=== PATIENT | male | born 1945 | race Caucasian/White ===

== ENCOUNTER → 2018-08-15 | Outpatient (REF) | payer MEDICARE ==
[~2018-08-15] MED LIST: ALPRAZOLAM0.25 M1 PO; AMOXICILLIN500 MG PO; ARTHRITIS PAIN650 MG PO; ASPIRIN 8181 MG PO; CLARITHROMYC500 MG PO; LEVETIRACETAM500 M1 PO; LOSARTAN POT50 MG PO; MAXZIDE-2537.5 MG/TA PO; MELATONIN5 MG PO; METOPROL TAR25 M1 PO; MULTIVITAMIN PO; OMEPRAZOLE20 M1 PO; OSTEO BI-FLE PO; SIMVASTATIN40 MG PO; TRAZODONE HCL50 MG PO
== END | disposition home or self-care (01) ==
LOC: ULTRASND 07:20
PROVIDERS: ATTEND Nurse Practitioner Family
DX: Z13.6 Encounter for screening for cardiovascular disorders (principal); Z87.891 Personal history of nicotine dependence
CPT/HCPCS: 76706

== ENCOUNTER 2018-10-16 05:47 | Day surgery (SDC) | payer MEDICARE ==
[~2018-10-16] VITALS: Ht 185.4 cm; Wt 98.4 kg
[~2018-10-16 05:47] MED LIST changes: +FUROSEMIDE20 MG PO; +LOSARTAN POT25 MG PO; +MELOXICAM15 MG PO; +METFORMIN500 M2 PO; +TRAZODONE100 MG PO
[2018-10-16 07:36] VITALS: BP 127/67
== END 2018-10-16 07:48 | disposition home or self-care (01) ==
LOC: ENDO 05:47
PROVIDERS: ATTEND Surgery
PROC: 0DJD8ZZ Inspection of Lower Intestinal Tract, Via Natural or Artificial Opening Endoscopic (ICD-10-PCS; principal; 2018-10-16)
DX: Z12.11 Encounter for screening for malignant neoplasm of colon (principal); K57.30 Diverticulosis of large intestine without perforation or abscess without bleeding; K64.4 Residual hemorrhoidal skin tags; K64.8 Other hemorrhoids; Z90.49 Acquired absence of other specified parts of digestive tract

== ENCOUNTER 2022-07-06 16:40 | Observation (INO) | payer MEDICARE ==
[2022-07-06] VITALS (50 sets, daily range): BP systolic 36–137; BP diastolic 18–98
[~2022-07-06] VITALS: Ht 185.4 cm; Wt 107.1 kg
[~2022-07-06 16:40] MED LIST changes: +CYMBALTA60 MG PO; -METOPROL TAR25 M1 PO; +MONTELUKAST SOD10 MG PO; +TOPROL XL25 M1 PO; +XARELTO STARTER1 TAB PO
--- NOTE | 2022-07-06 16:50 | NUR ---
PT TO ROOM VIA WC
[2022-07-06 17:08] LABS: HEMATOCRIT 42.3 % (39.0-50.0); IMMATURE GRANULOCYTES 0.4 % (0.0-5.0); MEAN CELL VOLUME 96.4 fL CALC (80.0-100.0); MEAN CORPUSCULAR HGB 30.8 pG CALC (26.0-32.0); MEAN CORPUSCULAR HGB CONC 31.9 g/dL CAL (32.0-36.0); NEUT# 5.49 thou/uL (1.82-7.42); RED BLOOD COUNT 4.39 mill/uL (4.70-6.10); RED CELL DISTRI WIDTH 13.2 % (11.5-15.5)
[2022-07-06 17:10] LABS: HEMOGLOBIN 13.5 g/dl (14.0-18.0)
[2022-07-06 17:24] LABS: ALBUMIN 3.6 g/dL (3.2-5.0); ALKALINE PHOSPHATASE 75 u/l (38-126); BILIRUBIN, TOTAL 1.1 mg/dL (0.0-1.4); BUN 18 mg/dL (8-23); BUN/CREATININE RATIO 19 (12-20 (CALC)); CARBON DIOXIDE 28 mmol/l (22-30); CHLORIDE 105 mmol/l (95-108); CREATININE 0.9 mg/dL (0.7-1.3); GFR FOR AFR.AMER. > 60 ML/MIN (>=60 (CALC)); GFR OTHER RACES > 60 ML/MIN (>=60 (CALC)); POTASSIUM 4.9 mmol/l (3.5-5.1); SGOT/AST 29 u/l (19-48)
[2022-07-06 17:29] LABS: ANION GAP 14 (6-22 (CALC)); SODIUM 142 mmol/l (137-146); TOTAL PROTEIN 6.2 g/dL (6.3-8.2)
[2022-07-06 17:37] LABS: MYOGLOBIN 43 ng/mL (0 - 121)
[2022-07-06 17:42] LABS: INTERNATIONAL NORMALIZED RATIO 1.1 RATIO (0.7-1.3)
--- NOTE | 2022-07-06 17:42 | NUR ---
PT IN ATRIAL FLUTTER, PT BEING MEDICATED TO ATTEMPT TO CONVERT TO NORMAL SINUS RHYTHM
--- NOTE | 2022-07-06 18:41 | NUR ---
PT TO BE ADMITTED
--- NOTE | 2022-07-06 18:54 | NUR ---
PT IN ROOM ON MONITOR WITH CARDIZEM DRIP RUNNING, NO NEEDS AT THIS TIME, PENDING ADMISSION.
--- NOTE | 2022-07-06 19:25 | NUR ---
PT HEART RHYTHM IS FREQUENTLY CONVERTING TO NSR AND THEN GOING BACK TO ATRIAL FLUTTER.
[2022-07-06] MEDS ORDERED: XARELTO20 MG PO (19:34)
--- NOTE | 2022-07-06 20:16 | NUR ---
REPORT CALLED TO ICU, PT REMAINS IN ATRIAL FLUTTER.
--- NOTE | 2022-07-06 20:25 | NUR ---
77 yr old white male admitted icu2 per stretcher from er. amb self to bed with cane. guilherme well. cardiac rehabilitation program director shows a flutter. cardizem cont to lac. ivf began as ordered. history obtained per pt & er redcord. oriented to room. fall precautions initiated. dsg to rt knee cdi.
--- NOTE | 2022-07-06 20:40 | NUR ---
lab here. blood drdawn.
--- NOTE | 2022-07-06 20:40 | NUR ---
Admission Note Report Given to: FRANCIE WADSWORTH Transported by: Wheelchair X Stretcher Transported with: X Nurse Transporter X Patent IV X O2 X Cash Posting Representative Location: X ICU MS2 PT ADMITTED TO ICU VIA STRETCHER BY RAIZA WADSWORTH.
--- NOTE | 2022-07-06 22:26 | NUR ---
director of cardiac rehabilitation shows sinus rhythm pvcs.
[2022-07-07] VITALS (12 sets, daily range): BP systolic 42–117; BP diastolic 25–71
--- NOTE | 2022-07-07 00:50 | NUR ---
urine spec collected & sent to lab.
[2022-07-07 01:30] LABS: URINE BILIRUBIN - DIPSTICK NEGATIVE (NEGATIVE); URINE BLOOD DIPSTICK NEGATIVE (NEGATIVE); URINE COLOR YELLOW; URINE GLUCOSE - DIPSTICK NEGATIVE (NEGATIVE); URINE KETONE NEGATIVE (NEGATIVE); URINE LEUK ESTERASE NEGATIVE (NEGATIVE); URINE PROTEIN - DIPSTICK NEGATIVE (NEG-TRACE); URINE SPECIFIC GRAVITY 1.025; URINE UROBILINOGEN - DIPSTICK 0.2 E.U./dL (0.2)
[2022-07-07 01:33] LABS: URINE NITRITE - DIPSTICK NEGATIVE (Negative)
--- NOTE | 2022-07-07 02:38 | NUR ---
michelle eduardo. blood drawn.
[2022-07-07 02:52] LABS: MEAN CELL VOLUME 96.5 fL CALC (80.0-100.0); MEAN CORPUSCULAR HGB 30.3 pG CALC (26.0-32.0); MEAN CORPUSCULAR HGB CONC 31.4 g/dL CAL (32.0-36.0); RED BLOOD COUNT 3.73 mill/uL (4.70-6.10); RED CELL DISTRI WIDTH 13.2 % (11.5-15.5)
[2022-07-07 03:04] LABS: ANION GAP 9 (6-22 (CALC)); BUN 17 mg/dL (8-23); BUN/CREATININE RATIO 20 (12-20 (CALC)); CARBON DIOXIDE 25 mmol/l (22-30); CHLORIDE 110 mmol/l (95-108); CREATININE 0.8 mg/dL (0.7-1.3); GFR FOR AFR.AMER. > 60 ML/MIN (>=60 (CALC)); GFR OTHER RACES > 60 ML/MIN (>=60 (CALC)); POTASSIUM 4.7 mmol/l (3.5-5.1); SODIUM 140 mmol/l (137-146)
[2022-07-07 03:05] LABS: HEMOGLOBIN 11.3 g/dl (14.0-18.0)
--- NOTE | 2022-07-07 04:00 | NUR ---
eyes closed. no distress. auto body painter shows sinus rhythm pvcs.
--- NOTE | 2022-07-07 05:54 | NUR ---
no distress this shift. cardiac/vascular sonographer shows sinus rhythm pvcs.
--- NOTE | 2022-07-07 07:15 | NUR ---
pt awake in bed; no apparent distress noted; pt offers no complaints; assessment completed at this time; pt alert and oriented; denies pain; no n/v noted; resp even and unlabored; lungs clear; skin color wnl; ra; hr reg; strong pulses; no edema noted; sb on monitor; abd soft with bs present; no bm noted per sheet writer; pt admits to voiding without complication; no urine to inspect at this time; urinal at bedside; #20 patent to lac with ivf/cardizem gtt infusing at 5 mg/hr; no redness or edema noted at site; plan of care/ am meds explained; call light within reach; will continue to monitor
--- NOTE | 2022-07-07 08:20 | NUR ---
cardizem gtt weaned at this time; sb on monitor; will continue to monitor
--- NOTE | 2022-07-07 09:55 | NUR ---
Dr Younger present at bedside to assess pt and discuss plan of care
--- NOTE | 2022-07-07 10:20 | NUR ---
awake in bed; spouse at bedside; iv saline locked; sr/sb on monitor; pt awaiting discharge; call light within reach; will continue to monitor
[2022-07-07] MEDS ORDERED: TAMSULOSIN0.4 MG PO (10:42)
--- NOTE | 2022-07-07 11:42 | NUR ---
discharge instructions reviewed with pt and spouse; states understanding; patient awaiting to eat lunch before being discharged; iv removed with catheter tip intact
--- NOTE | 2022-07-07 12:14 | NUR ---
Discharge instructions given. Patient verbalizes understanding of same. Discharged in stable condition via Wheelchair to Home with spouse. All belongings sent with pt.
== END 2022-07-07 12:14 | disposition home or self-care (01) ==
LOC: ED 16:40 → ICU 18:37
PROVIDERS: Emergency Medicine; ADMIT Internal Medicine; ATTEND Internal Medicine
DX: I48.91 Unspecified atrial fibrillation (principal); I48.92 Unspecified atrial flutter; I10 Essential (primary) hypertension; E11.9 Type 2 diabetes mellitus without complications; Z86.718 Personal history of other venous thrombosis and embolism; Z95.818 Presence of other cardiac implants and grafts; Z79.01 Long term (current) use of anticoagulants; Z96.651 Presence of right artificial knee joint; Z79.84 Long term (current) use of oral hypoglycemic drugs; Z20.822 Contact with and (suspected) exposure to COVID-19
CPT/HCPCS: G0378; J0282